=== PATIENT | female | born 1975 | race Caucasian/White ===

== ENCOUNTER → 2016-06-25 | Outpatient (CLI) | payer MEDICAID ==
[~2016-06-25] MED LIST: MACROBID 100MG100 MG PO; PERCOCET 5/3251 EACH PO; PHENERGAN 25MG.25 M1 PO; PRENATAL1 TA1 PO; SURFAK 240MG C240 MG PO; ZOFRAN 8MG TABLE8 MG PO
[2016-06-25 09:56] LABS: LYMPH # 1.2 K/mm3 (0.7-4.5); LYMPH % 28.1 % (10-50.0)
[2016-06-25 10:03] LABS: HEMOGLOBIN 12.6 g/dL (12.2-16.2)
[2016-06-25 10:53] LABS: BUN 12 mg/dL (7-18)
[2016-06-25 10:54] LABS: GFR (ESTIMATED) 92 ML/MIN (59-)
--- NOTE | 2016-06-28 17:04 | RADIOLOGY REPORT PS360 ---
DIG MAMM-SCREEN JACKELINE W/CAD CAD Screening COMPARISON: Digital mammograms 06/22/2005 INDICATION: Is a history of breast cancer in patient's maternal cousin diagnosed at age 30 TECHNIQUE: Standard CC and MLO images were obtained. R2 CAD reviewed. FINDINGS: Moderate diffuse fiber glandular densities are seen in both breast and the findings are bilateral and symmetrical. There is no suspicious lesion in either breast and there are no suspicious microcalcifications. IMPRESSION: Moderate heterogenic breast density with no suspicious lesion seen recommend yearly follow-up BI-RADS CATEGORY: 1_Negative RECOMMENDED FOLLOWUP: 12M 12 MONTH FOLLOW-UP (A letter has been sent to the patient regarding results of the study.)
== END ==
LOC: RAD 09:12
PROVIDERS: Nurse Practitioner Obstetrics & Gynecology
DX: Z12.31 Encounter for screening mammogram for malignant neoplasm of breast (principal); Z01.419 Encounter for gynecological examination (general) (routine) without abnormal findings; N92.0 Excessive and frequent menstruation with regular cycle; R53.82 Chronic fatigue, unspecified
CPT/HCPCS: G0202

== ENCOUNTER → 2016-12-23 | Outpatient (CLI) | payer MEDICAID ==
[~2016-12-23] MED LIST changes: +ZOFRAN ODT4 MG PO
[2016-12-23 09:55] LABS: HEMOGLOBIN 12.7 g/dL (12.2-16.2); LYMPH # 1.8 K/mm3 (0.7-4.5)
[2016-12-23 12:02] LABS: BUN 12 mg/dL (7-18)
[2016-12-23 12:30] LABS: GFR (ESTIMATED) 110 ML/MIN (59-)
== END ==
LOC: LAB 09:30
PROVIDERS: Nurse Practitioner Obstetrics & Gynecology
DX: N92.6 Irregular menstruation, unspecified (principal); N92.0 Excessive and frequent menstruation with regular cycle; Z98.890 Other specified postprocedural states